=== PATIENT | female | born 1995 | race Caucasian/White ===

== ENCOUNTER 2021-03-02 12:23 | Outpatient (CLI) | payer OTHER ==
[~2021-03-02 12:23] MED LIST: MACROBID 100 M100 MG PO; PRENATAL TABLE1 EAC2 PO; ZOFRAN4 MG PO
== END 2021-03-02 15:56 | disposition home or self-care (01) ==
LOC: GENOP 12:23
DX: O99.891 Other specified diseases and conditions complicating pregnancy (principal); R10.30 Lower abdominal pain, unspecified; Z3A.33 33 weeks gestation of pregnancy
CPT/HCPCS: 81001; 96372; J0696

== ENCOUNTER 2021-04-02 15:48 | Outpatient (CLI) | payer OTHER ==
[~2021-04-02] VITALS: Ht 167.6 cm; Wt 93.0 kg
== END 2021-04-02 18:17 | disposition home or self-care (01) ==
LOC: GENOP 15:48
DX: O26.893 Other specified pregnancy related conditions, third trimester (principal); Z3A.38 38 weeks gestation of pregnancy
CPT/HCPCS: G0463

== ENCOUNTER 2021-04-10 05:37 | Inpatient (IN) | payer OTHER ==
[~2021-04-10] VITALS: Ht 167.6 cm; Wt 93.9 kg
[2021-04-10 06:43] LABS: HEMOGLOBIN 10.6 gm/dl (12.3-15.3); RED BLOOD COUNT 3.45 M/UL (4.00-5.10); WHITE BLOOD COUNT 10.2 K/UL (4.5-11.0)
[2021-04-10] MEDS ORDERED: DOCUSATE SODIU100 MG PO (12:38)
[2021-04-10] MEDS ORDERED: IBUPROFEN600 MG PO (12:38)
[2021-04-11 06:39] LABS: HEMOGLOBIN 9.4 gm/dl (12.3-15.3)
== END 2021-04-11 17:47 | disposition home or self-care (01) | DRG 807 ==
LOC: GENOP 05:37 → OB 05:38
PROVIDERS: Obstetrics & Gynecology; ADMIT Obstetrics & Gynecology
PROC: 4A1HXCZ Monitoring of Products of Conception, Cardiac Rate, External Approach (ICD-10-PCS; 2021-04-10)
PROC: 10E0XZZ Delivery of Products of Conception, External Approach (ICD-10-PCS; principal; 2021-04-11)
PROC: 3E033VJ Introduction of Other Hormone into Peripheral Vein, Percutaneous Approach (ICD-10-PCS; 2021-04-11)
PROC: 10907ZC Drainage of Amniotic Fluid, Therapeutic from Products of Conception, Via Natural or Artificial Opening (ICD-10-PCS; 2021-04-11)
DX: O99.02 Anemia complicating childbirth (principal); Z37.0 Single live birth; D64.9 Anemia, unspecified; Z3A.39 39 weeks gestation of pregnancy; Z90.49 Acquired absence of other specified parts of digestive tract; Z20.822 Contact with and (suspected) exposure to COVID-19; O34.83 Maternal care for other abnormalities of pelvic organs, third trimester; N83.209 Unspecified ovarian cyst, unspecified side; O76 Abnormality in fetal heart rate and rhythm complicating labor and delivery
CPT/HCPCS: 36415; 51702; 81001; 82800; 85014; 85018; 85025; 90715; J2590; J2795; J7030; J7120; U0003